=== PATIENT | male | born 1995 ===

== ENCOUNTER 2018-03-01 05:22 | Emergency (ER) | payer SELFPAY ==
[2018-03-01 05:27] VITALS: BP 135/86; PULSE 61; RESP 18; TEMP 98; O2SAT 100
--- NOTE | 2018-03-01 06:19 | ED PDOC ---
HPI: General Adult Time Seen by Provider: 03/01/18 05:40 Chief Complaint (Nursing): Medical Clearance Chief Complaint (Provider): Medical clearance History Per: Patient, Other ([employer] ) History/Exam Limitations: no limitations Onset/Duration Of Symptoms: Mins (prior to arrival) Additional Complaint(s): Rodrick Mayes is a 22 year old male with no significant past medical history , who was brought to the ER by [facility] for medical and psychiatric evaluation. Patient was in precinct and was being aggressive, kicking rios, and licking windows. Patient offers no complaints and says he feels fine, denying any suicidal ideation, homicidal ideation hallucinations, drug or alcohol use. PMD: none provided Past Medical History Reviewed: Historical Data, Nursing Documentation, Vital Signs Vital Signs: Last Vital Signs Temp 98.0 F 03/01/18 05:23 Pulse 61 03/01/18 05:23 Resp 18 03/01/18 05:23 BP 135/86 03/01/18 05:23 Pulse Ox 100 03/01/18 06:59 - Medical History PMH: No Chronic Diseases - Surgical History Surgical History: No Surg Hx - Family History Family History: States: Unknown Family Hx - Social History Current smoker - smoking cessation education provided: Yes (occasionally) Alcohol: None Drugs: Cannabis (occasional) - Allergies Allergies/Adverse Reactions: Allergies Allergy/AdvReac Type Severity Reaction Status Date / Time No Known Allergies Allergy Verified 03/01/18 05:28 Review of Systems ROS Statement: Except As Marked, All Systems Reviewed And Found Negative Constitutional: Negative for: Other (medial complaints) Psych: Negative for: Suicidal ideation, Other (suicidal ideation, hallucinations ) Physical Exam - Reviewed Nursing Documentation Reviewed: Yes Vital Signs Reviewed: Yes - Physical Exam Appears: Positive for: Non-toxic, No Acute Distress Head Exam: Positive for: ATRAUMATIC, NORMOCEPHALIC Skin: Positive for: Warm, Dry Eye Exam: Positive for: EOMI, PERRL ENT: Positive for: Pharynx Is (clear) Neck: Positive for: Painless ROM, Supple Cardiovascular/Chest: Positive for: Regular Rate, Rhythm. Negative for: Murmur Respiratory: Positive for: Normal Breath Sounds. Negative for: Respiratory Distress Gastrointestinal/Abdominal: Positive for: Soft. Negative for: Tenderness Back: Positive for: Normal Inspection. Negative for: Decreased ROM Extremity: Negative for: Deformity Lymphatic: Negative for: Adenopathy Neurologic/Psych: Positive for: Alert. Negative for: Motor/Sensory Deficits - ECG O2 Sat by Pulse Oximetry: 100 (RA) Pulse Ox Interpretation: Normal Medical Decision Making Medical Decision Making: Time: 6:02 Impression: aggressive behavior in setting of incarceration Patient is medically stable for incarceration, crisis evaluation ordered for patient. [employer]p [employer] evaluated pt. Stable for dc to police custody. Scribe Attestation: Documented by Keily Lawrence acting as a scribe for Harriet Smith MD. Scribe Attestation: All medical record entries made by the Scribe were at my direction and personally dictated by me. I have reviewed the chart and agree that the record accurately reflects my personal performance of the history, physical exam, medical decision making, and the department course for this patient. I have also personally directed, reviewed, and agree with the discharge instructions and disposition. Disposition - Clinical Impression Clinical Impression: Bizarre behavior - Disposition Disposition: Discharged/Transfer to Law Enforcement Disposition Time: 07:00 Condition: GOOD Additional Instructions: MEDICALLY AND PSYCHIATRICALLY CLEARED FOR INCARCERATION Instructions: Marijuana Use and Addiction Forms: [employer] (Frisian) Print Language: ENGLISH
== END 2018-03-01 07:02 ==
LOC: H.ER 05:22
DX: R46.2 Strange and inexplicable behavior (principal); Z02.89 Encounter for other administrative examinations; Z00.8 Encounter for other general examination